=== PATIENT | female | born 1955 | race Caucasian/White ===

== ENCOUNTER 2019-03-22 12:10 | Inpatient (IN) ==
[2019-03-24] MEDS ORDERED: *HR* OxyCODONE Immed Rel 5 MG TABLET PO PRN (15:56)
[2019-03-24] MEDS: *HR* Metformin 500 MG TABLET PO SCH (19:21)
[2019-03-24] MEDS: Acetaminophen 325 MG TABLET PO PRN (20:14)
[2019-03-24] MEDS: Aspirin Enteric Coated 325 MG Tablet PO SCH (20:14)
[2019-03-25 07:21] LABS: Basophils % 0.3 %; Eosinophils # 0.1 K/mcL (0.0-0.6); Eosinophils % 4.5 %; Hemoglobin 9.1 g/dL (11.5-15.4); Immature Granulocytes % 4.2 % (0-4); Lymphocytes # 0.7 K/mcL (0.6-4.6); Lymphocytes % 23.3 %; Mean Corpuscular HGB Conc 32.5 g/dL (31.6-35.5); Mean Corpuscular Volume 89.2 fL (83.0-100.0); Mean Platelet Volume 9.3 fL (9.4-12.4); Monocytes # 0.1 K/mcL (0.0-1.3); Monocytes % 3.8 %; Nucleated Red Blood Cells 0.7 /100 WBC (0); Platelet Count 313 K/mcL (140-400); Prothrombin Time 11.7 Seconds (9.4-12.1); Red Blood Count 3.14 M/mcL (3.82-4.97); Red Cell Distribution Width 16.1 % (11.5-14.5); Segmented Neutrophils % 63.9 %
[2019-03-25 07:24] LABS: Activated Partial Thrombo Time 26.3 Seconds (26.0-36.0)
[2019-03-25 08:46] LABS: Neutrophils # 1.9 K/mcL (1.6-8.9)
[2019-03-25 09:09] LABS: BUN/Creatinine Ratio 37 (6-26); Blood Urea Nitrogen 15 mg/dL (8-23); Calcium 8.8 mg/dL (8.6-10.3); Carbon Dioxide 27 mEq/L (23-29); Chloride 105 mEq/L (98-107); Glucose 159 mg/dL (70-105); Osmolality,Calculated 290 (280-300); Potassium 4.4 mEq/L (3.5-5.1); Sodium 138 mEq/L (136-145); eGFR For Non-African Americans > 60 (> 60)
[2019-03-25] MEDS: *HR* Metformin 500 MG TABLET PO SCH ×2 (09:48→17:13)
[2019-03-25] MEDS: Aspirin Enteric Coated 325 MG Tablet PO SCH ×2 (09:48→20:46)
[2019-03-25] MEDS: Cholecalciferol (D-3) 1,000 UNIT TABLET PO SCH (09:49)
--- NOTE | 2019-03-25 15:16 | Internal Med History&Physical ---
Date of Encounter: 03/26/19 Time of Encounter: 12:35 Internal Medicine - H&P: HPI Chief complaint: post bilateral TKR need rehab Admitted From: Intrahospital Transfer History of present illness: Ms. Alatorre is a 63 year old female who is admit for rehab, after bilateral TKR. She reports she has been active all her life until about 1 year ago the pain in both knees so bad she could not do anything. She stated she is looking forward to getting back to her usual life. She says her pain is well controlled. She says her mood is ok. She is eating. Denies CP or SOB EXAM GEN alert athletic WF looks younger than stated age oriented and talkative HEENT no lesions noted Neck no bruit no mass HEART reg no M Lungs clear bilat abd full soft BS present ext dressings in place pulses intact ashvin ASSESSMENTS AND PLANS 1 - S/P bilat TKR for severe osteoarthritis no complications continue ASA 325 bid is deconditioned and in need of PT OT will be admit to rehab 2 - pain control pt not having severe pain per report using naprosyn Past Med Surg Social Fam HX - Past Medical History Medical history: arthritis, other Psychiatric history: no psych history - Past Surgical History Surgical History: cholecystectomy, hysterectomy Additional surgical history: bladder lift - Social History Smoking Status: Unknown if ever smoked Smokeless Tobacco Status: No Alcohol use: none Drug use: none - Family History Mother Living Status: Age at : 92 Cause of : heart failure Internal Medicine - H&P: Meds Calc/D3/Mag/Zn/[place]exter/Fabian/[place] [Calcium 600 mg Plus Vit D Tab] 2 each PO QAM 03/20/19 [History] Naproxen 500 mg PO Q12H PRN 03/20/19 [History] Aspirin Enteric Coated [Aspirin EC] 325 mg PO BID 10 Days #20 tablet. 03/24/19 [Rx] Allergy/AdvReac Type Severity Reaction Status Date / Time No Known Allergies Allergy Verified 03/20/19 07:23 All Systems PM: A 10-system review of systems was performed and is negative for pertinent findings except as documented above in the HPI. - Constitutional Vitals: Temp Pulse Resp BP Pulse Ox 98.7 F 95 16 174/95 96 03/25/19 11:58 03/25/19 11:58 03/25/19 11:58 03/25/19 11:58 03/25/19 11:58 Internal Med - H&P Results - Labs CBC & Chem 7: 03/25/19 05:40 03/25/19 05:40 Labs: Short CBC 03/25/19 Range/Units 05:40 WBC 2.9 L (4.3-11.1) K/mcL Hgb 9.1 L (11.5-15.4) g/dL Hct 28.0 L (35.3-44.9) % Plt Count 313 (140-400) K/mcL Neutrophils # 1.9 (1.6-8.9) K/mcL BMP 03/25/19 05:40 Sodium 138 Potassium 4.4 Chloride 105 Carbon Dioxide 27 BUN 15 Creatinine 0.41 L Glucose 159 H Calcium 8.8
[2019-03-25] MEDS ORDERED: Aspirin Enteric Coated 325 MG Tablet PO SCH (15:56)
[2019-03-25] MEDS: Acetaminophen 325 MG TABLET PO PRN (17:13)
[2019-03-26] MEDS: Cholecalciferol (D-3) 1,000 UNIT TABLET PO SCH (10:30)
[2019-03-26] MEDS: Aspirin Enteric Coated 325 MG Tablet PO SCH ×2 (10:30→20:21)
[2019-03-26] MEDS: *HR* Metformin 500 MG TABLET PO SCH ×2 (10:30→17:43)
--- NOTE | 2019-03-26 13:22 | Internal Med Progress Note ---
Date of Encounter: 03/26/19 Time of Encounter: 01:20 - Subjective Interval history: Interval Hisotry Ms. Alatorre is a 63 year old female who is admit for rehab, after bilateral TKR. She reports she has been active all her life until about 1 year ago the pain in both knees so bad she could not do anything. She stated she is looking forward to getting back to her usual life. She says her pain is well controlled. She says her mood is ok. She is eating. Denies CP or SOB. She denies new weakness or numbness. EXAM GEN alert athletic WF oriented and talkative HEENT no lesions noted Neck no bruit no mass HEART reg no M Lungs clear bilat abd full soft BS present ext dressings in place pulses intact ashvin ASSESSMENTS AND PLANS 1 - S/P bilat TKR for severe osteoarthritis no complications continue ASA 325 bid is deconditioned and in need of PT OT will be admit to rehab 2 - pain control pt not having severe pain per report using naprosyn - Constitutional Vitals: Temp Pulse Resp BP Pulse Ox 98.6 F 94 16 152/77 97 03/26/19 09:00 03/26/19 09:00 03/26/19 09:00 03/26/19 09:00 03/26/19 09:00 Internal Medicine: Result - Labs CBC & Chem 7: 03/25/19 05:40 03/25/19 05:40 - ABG Interpretation ABG results: PT/INR, D-dimer PT 11.7 Seconds (9.4-12.1) 03/25/19 05:40 Consult Discharge Plan - Plan Instructions: How to Check Your Blood Sugar (GEN), Diabetes Mellitus Type 2 in Adults (GEN)
[2019-03-26] MEDS: Acetaminophen 325 MG TABLET PO PRN (17:43)
[2019-03-27] MEDS: *HR* Metformin 500 MG TABLET PO SCH ×2 (08:07→16:44)
[2019-03-27] MEDS: Aspirin Enteric Coated 325 MG Tablet PO SCH ×2 (08:07→21:10)
[2019-03-27] MEDS: Cholecalciferol (D-3) 1,000 UNIT TABLET PO SCH (08:08)
--- NOTE | 2019-03-27 10:23 | Internal Med Progress Note ---
Date of Encounter: 03/27/19 Time of Encounter: 10:21 - Assessment and plan (1) Status post bilateral knee replacements Current Visit: Yes Status: Acute Assessment and plan: Continue PT and OT. Will follow progress. Pain controlled with oxycodone. Continue to ice. Follow up with ortho as scheduled. (2) Blood glucose elevated Current Visit: Yes Status: Chronic Assessment and plan: Continue metformin. Diet educated. (3) Acute blood loss anemia Current Visit: Yes Status: Acute Assessment and plan: Hemoglobin currently 9.1. Patient asymptomatic. Slowly improving after surgery. - Time Spent With Patient less than 15 minutes - Subjective Interval history: Participating well with therapy. Ambulating was supervision. Denies pain, fever, chills, nausea, vomiting or diarrhea. Bowels moving as normal. Plan to return to home with . - Constitutional Vitals: Temp Pulse Resp BP Pulse Ox 98.0 F 84 15 149/81 98 03/27/19 09:39 03/27/19 09:39 03/27/19 09:39 03/27/19 09:39 03/27/19 09:39 General appearance: Present: A&O X 3, pleasant, no acute distress, answers qu estions appropriately - Head Head exam: Present: atraumatic, normocephalic - Eye Eye exam: Present: PERRL, conjuntiva pink, sclera anicteric Pupils: Present: PERRL - Neck Neck exam general surgery: Present: supple, trachea midline. Absent: lymphadenopathy - Respiratory Respiratory exam: Present: CTAB. Absent: accessory muscle use, rales, rhonchi, wheezes - Cardiovascular Cardiovascular exam: Present: RRR, +S1, +S2. Absent: diastolic murmur, gallop, rubs, systolic murmur - GI/Abdominal GI/Abdominal exam: Present: normal bowel sounds, soft, no peritoneal signs. Absent: distended, tenderness - Extremities Exam Extremities exam: Present: warm, radial pulses palpable and symmetrical. Absent: calf tenderness, cyanotic, pedal edema - Incison Comments: Bilateral knees dressing dry and intact. Mild amount of surrounding edema. No sign of infection. - Neurological Exam Neurological exam: Present: CN II-XII intact, oriented X3, no focal deficits. Absent: pronater drift, facial droop, speech deficit - Skin Skin exam: Present: dry, intact Internal Medicine: Result - Labs CBC & Chem 7: 03/25/19 05:40 03/25/19 05:40 - ABG Interpretation ABG results: PT/INR, D-dimer PT 11.7 Seconds (9.4-12.1) 03/25/19 05:40 Consult Discharge Plan - Plan Instructions: How to Check Your Blood Sugar (GEN), Diabetes Mellitus Type 2 in Adults (GEN) Referrals: Tenisha Delgadillo CNP [Primary Care Provider] -
[2019-03-27] MEDS: Acetaminophen 325 MG TABLET PO PRN (16:44)
[2019-03-28 06:05] LABS: BUN/Creatinine Ratio 35 (6-26); Blood Urea Nitrogen 12 mg/dL (8-23); Calcium 8.9 mg/dL (8.6-10.3); Carbon Dioxide 28 mEq/L (23-29); Chloride 105 mEq/L (98-107); Glucose 142 mg/dL (70-105); Osmolality,Calculated 290 (280-300); Potassium 4.1 mEq/L (3.5-5.1); Sodium 139 mEq/L (136-145); eGFR For Non-African Americans > 60 (> 60)
[2019-03-28 07:38] VITALS: BP 151/80
[2019-03-28] MEDS: Cholecalciferol (D-3) 1,000 UNIT TABLET PO SCH (08:01)
[2019-03-28] MEDS: *HR* Metformin 500 MG TABLET PO SCH (08:01)
[2019-03-28] MEDS: Aspirin Enteric Coated 325 MG Tablet PO SCH (08:02)
--- NOTE | 2019-03-28 11:35 | Discharge Summary ---
Date of Encounter: 03/28/19 Time of Encounter: 11:33 - Discharge Diagnosis (1) Status post bilateral knee replacements Priority: Primary Status: Acute Comments: Continue current pain medication. Continue outpatient PT. Ambulating with Walker independently. Follow up with ortho as scheduled. (2) Blood glucose elevated Priority: Secondary Status: Chronic Comments: Continue metformin. Follow up with PCP. (3) Acute blood loss anemia Priority: Secondary Status: Acute Comments: Improving. Follow up with PCP. Hospital course: Ms. Alatorre is a 63 year old female discharging to home with status post bilateral total knee replacement. Follow up with ortho as scheduled. Patient has had elevated glucose level and was started on metformin twice a day. Follow up with PCP. Denies fever, chills, nausea vomiting or diarrhea. Ambulating with Walker independently. Continue outpatient PT. Discharge discussed with: patient, family, nurse, social work - Time Spent with Patient Total time spent providing and/or coordinating discharge services: - Discharge Medications Prescriptions: No Action Naproxen 500 mg PO Q12H PRN PRN Reason: Pain Calc/D3/Mag/Zn/Dexter/Fabian/[place] [Calcium 600 mg Plus Vit D Tab] 2 each PO QAM Aspirin Enteric Coated [Aspirin EC] 325 mg PO BID 10 Days #20 tablet. [place] Medications: Calc/D3/Mag/Zn/Dexter/Fabian/[place] [Calcium 600 mg Plus Vit D Tab] 2 each PO QAM 03/20/19 [History] Naproxen 500 mg PO Q12H PRN 03/20/19 [History] Aspirin Enteric Coated [Aspirin EC] 325 mg PO BID 10 Days #20 tablet. 03/24/19 [Rx] Acetaminophen [Tylenol] 650 mg PO Q6HR PRN tablet 03/28/19 [Rx] Calcium Carbonate [Tums] 1,000 mg PO QAM tab.chew 03/28/19 [Rx] Cholecalciferol (D-3) [Vitamin D] 1,000 unit PO DAILY tablet 03/28/19 [Rx] metFORMIN [Glucophage] 500 mg PO BIDWM #60 tablet 03/28/19 [Rx] Allergies/Adverse Reactions: Allergy/AdvReac Type Severity Reaction Status Date / Time No Known Allergies Allergy Verified 03/20/19 07:23 Date of admission: 03/24/19 16:05 Primary care physician: Tenisha Delgadillo, Consults: 03/24/19 15:53 Consult to Occupational Therapy [CONS] Routine Comment: Evaluate, develop and implement POC Reason for Consult: bilat tkr Does patient have active BEDREST order?: No Is patient medically & hemodynamically stable?: Yes Patient assessed for mobility or mobilized this visit?: No Consult to Physical Medicine/Rehab [CONS] Routine Reason for Consult: s/p bl tkr Call Completed: Yes Consult to Physical Therapy [CONS] Routine Comment: Evaluate, develop and implement POC Reason for Consult: bilat tkr Does patient have active BEDREST order?: No Is patient medically & hemodynamically stable?: Yes Patient assessed for mobility or mobilized this visit?: No Consult to Recreational Therapy [CONS] Routine Comment: Evaluate, develop and implement POC Consult to Lighting Engineering Technician [CONS] Routine Reason for SW Consult: d/c planning Discharging clinician: Sumaya Harper Anticipated date of discharge: 03/28/19 - Constitutional Vitals: Temp Pulse Resp BP Pulse Ox 98.6 F 90 16 151/80 98 03/28/19 07:37 03/28/19 07:37 03/28/19 07:37 03/28/19 07:37 03/28/19 07:37 General appearance: Present: A&O X 3, pleasant, no acute distress, answers questions appropriately - Head Head exam: Present: atraumatic, normocephalic - Eye Eye exam: Present: PERRL, conjuntiva pink, sclera anicteric Pupils: Present: PERRL - Neck Neck exam general surgery: Present: supple, trachea midline. Absent: lymphadenopathy - Respiratory Respiratory exam: Present: CTAB. Absent: accessory muscle use, rales, rhonchi, wheezes - Cardiovascular Cardiovascular exam: Present: RRR, +S1, +S2. Absent: diastolic murmur, gallop, rubs, systolic murmur - GI/Abdominal GI/Abdominal exam: Present: normal bowel sounds, soft, no peritoneal signs. Absent: distended, tenderness - Extremities Exam Extremities exam: Present: warm, radial pulses palpable and symmetrical. Absent : calf tenderness, cyanotic, pedal edema Additional comments: Bilateral knee incisions dressings dry and intact. No drainage. Slight amount of swelling surrounding. No sign of infection. - Neurological Exam Neurological exam: Present: CN II-XII intact, oriented X3, no focal deficits. Absent: pronater drift, facial droop, speech deficit - Skin Skin exam: Present: dry, intact - Patient Status Disposition: Home, Self-Care Condition: Good Functional capacity at discharge: uses cane/walker Overall status at discharge: patient is progressing back to baseline - Discharge Instructions Instructions: How to Check Your Blood Sugar (GEN), Diabetes Mellitus Type 2 in Adults (GEN) Follow Up With: Tenisha Delgadillo, CLINICAL ASSOCIATE [Primary Care Provider] - - Diet and Activity Activity: as per physical therapy Diet: advance to your usual diet, diabetic diet
== END 2019-03-28 14:17 | disposition home or self-care (01) | DRG 560 ==
LOC: INPGRE 03-24 16:05